=== PATIENT | female | born 1940 | race Caucasian/White ===

== ENCOUNTER → 2021-12-07 11:38 | Outpatient (BNVA) | payer MEDICARE, SELFPAY | PROVIDERS: PCP Internal Medicine; Referring Provider Internal Medicine; Visit Provider Psychiatry & Neurology Neurology | DX: G25.0 Essential tremor (principal); G25.81 Restless legs syndrome; H53.9 Unspecified visual disturbance; R42 Dizziness and giddiness | CPT/HCPCS: 99212 ==

== ENCOUNTER → 2022-06-03 14:16 | Outpatient (BNVA) | payer MEDICARE, SELFPAY | PROVIDERS: PCP Internal Medicine; Visit Provider Psychiatry & Neurology Neurology | DX: G25.0 Essential tremor (principal); R42 Dizziness and giddiness; H53.9 Unspecified visual disturbance; G25.81 Restless legs syndrome | CPT/HCPCS: 99212 ==

== ENCOUNTER → 2023-01-28 12:31 | Outpatient (BNVA) | payer MEDICARE, SELFPAY | PROVIDERS: PCP Internal Medicine; Visit Provider Psychiatry & Neurology Neurology | DX: G25.0 Essential tremor (principal); G25.81 Restless legs syndrome; R42 Dizziness and giddiness; H53.9 Unspecified visual disturbance | CPT/HCPCS: 99212 ==

== ENCOUNTER 2023-07-29 12:30 | Outpatient (AMB) | payer MEDICARE, SELFPAY ==
--- NOTE | 2023-07-29 12:30 | A.OFFVIS_ITS ---
Intake Vital Signs 07/29/23 12:33 Height 5 ft 4 in Weight 140 lb BMI 24.0 BP 142/80 H Blood Pressure Location Lt brachial Position Sitting Pulse 78 Pulse Source Pulse Oximeter Pulse Oximetry (%) 98 Oxygen Delivery Method Room Air Intake Visit Reasons: 6m follow up Tremor-lvm Intake Note: Fup tremor and rls, pt states diet change is helping and tremors have gone up more. Pt tried pt and said vertigo has improved. Allergies raloxifene [From Evista] Allergy (Intermediate, Verified 07/29/23 12:36) Joint Pain alendronate sodium [From Fosamax] Allergy (Unknown, Verified 07/29/23 12:36) Rash weed pollen Allergy (Unknown, Verified 07/29/23 12:36) Unknown primidone Adverse Reaction (Intermediate, Verified 07/29/23 12:36) Nausea propranolol Adverse Reaction (Intermediate, Verified 07/29/23 12:36) Difficulty Breathing gabapentin Adverse Reaction (Unknown, Verified 07/29/23 12:36) Dizziness topiramate [From Topamax] Adverse Reaction (Unknown, Verified 07/29/23 12:36) Fatigued Medication List - Last Reconciled 07/29/23 by Salina Fritz MD albuterol sulfate 90 mcg/actuation 0 mcg inhalation atorvastatin 10 mg PO DAILY diclofenac sodium 1% (Arthritis Pain (diclofenac)) 2 grams topical QID estradiol 0.01%(0.1mg/gram) grams vaginal fluticasone propionate 220 mcg/actuation (Flovent HFA) 2 puffs inhalation BID hyaluronate sod, cross-linked (Gel-One) intra-articular levothyroxine 75 mcg PO DAILY meclizine 12.5 mg PO TID PRN montelukast 10 mg PO DAILY pregabalin (Lyrica) 25 mg PO TID 90 days HPI HPI Comments History of Present Illness Details 82y/o female comes for follow up. she re ports right sacroiliac pain , sciatica.Sciatica is better but she still has the back pain. she [facility].she also sees Dr. Sargent at [facility] who suggested steroids. she had breast scar tissue tear which was very painful initially but better now. she is doing PT now and it helps. she feels like she is moving less due to pain. Tremors fluctuates and she feels the medication wears off 3 hrs after the meds.Lyrica qid makes her vision blurry so she takes 3 times a day 1-2 oz of wine at dinner helps. 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 she is on magnesium and riboflavin Her leg cramps are better since she increased her spinach and sardines in her diet. Vertigo - mild increase . [facility] Medical History Restless legs syndrome Visual aura Vertigo Benign essential tremor Family History Brother Carotid artery disease Social History Alcohol intake: current Alcohol type: wine Patient Tobacco Use Status: Never used Tobacco Physical Exam Vital Signs: Last Vital Signs Pulse 78 07/29/23 12:33 BP 142/80 H 07/29/23 12:33 Pulse Ox 98 07/29/23 12:33 Oxygen Delivery Method Room Air 07/29/23 12:33 BMI result Body Mass Index 24.0 Const General: cooperative, healthy appearing, comfortable and no acute distress Orientation/consciousness: patient oriented x3 HEENT Head: Yes normal to inspection Eyes Pupils: Equal, round and reactive pupils present Back/Spine/Pelvis Other: tightness in right sacroiliac region Neuro Other: tongue tremors Mild postural tremors L>R gait - normal neck - good range of motion General: patient oriented x3 Cranial nerves: Yes CN's II-XII intact bilaterally, Yes Facial sensation intact/muscles of mastication intact, Yes Equal, round and reactive pupils present and Yes Normal facial strength present Cognition (Neuro): normal cognition Assessment & Plan Assessment & Plan (1) Benign essential tremor: Code(s): G25.0 - Essential tremor (2) Vertigo: Code(s): R42 - Dizziness and giddiness (3) Visual aura: Code(s): H53.9 - Unspecified visual disturbance (4) Restless legs syndrome: Code(s): G25.81 - Restless legs syndrome Plan Continue lyrica 25mg bid,tid as needed Neck exercises Back pain - continue PT Orders: Orders PT Evaluation and Treatment Today R42 - Dizziness and giddiness Coding Level of Care Code Est Pt Level 4 (91898) Diagnoses Benign essential tremor G25.0 Vertigo R42 Visual aura H53.9 Restless legs syndrome G25.81
[2023-07-29 12:33] VITALS: BP 142/80; PULSE 78; O2SAT 98; BMI 24.0
== END 2023-07-29 13:14 | disposition home or self-care (01) ==
PROVIDERS: Visit Provider Psychiatry & Neurology Neurology
DX: G25.0 Essential tremor (principal); R42 Dizziness and giddiness; H53.9 Unspecified visual disturbance; G25.81 Restless legs syndrome
CPT/HCPCS: 99214

== ENCOUNTER → 2023-07-29 12:30 | Outpatient (BNVA) | payer MEDICARE, SELFPAY | PROVIDERS: Visit Provider Psychiatry & Neurology Neurology | DX: G25.0 Essential tremor (principal); R42 Dizziness and giddiness; H53.9 Unspecified visual disturbance; G25.81 Restless legs syndrome; Z79.899 Other long term (current) drug therapy | CPT/HCPCS: 99212 ==

== ENCOUNTER 2024-02-02 12:25 | Outpatient (AMB) | payer MEDICARE, SELFPAY ==
[2024-02-02 12:36] VITALS: BP 166/80; PULSE 76; RESP 16; O2SAT 97
--- NOTE | 2024-02-02 12:36 | MHC.OFFVIS ---
Intake Vital Signs 02/02/24 12:36 Height 54 ft Weight 141 lb 2 oz BMI 0.2 BP 166/80 H Blood Pressure Location Rt brachial Position Sitting Respiration 16 Pulse 76 Pulse Source Pulse Oximeter Pulse Oximetry (%) 97 Oxygen Delivery Method Room Air Intake Visit Reasons: 6m follow up Tremor-LVM Intake Note: Pt presents to the office for a 6 month follow up for tremors. [employer] P[employer] Supervisor Required: No Allergies raloxifene [From Evista] Allergy (Intermediate, Verified 02/02/24 12:36) Joint Pain alendronate sodium [From Fosamax] Allergy (Unknown, Verified 02/02/24 12:36) Rash weed pollen Allergy (Unknown, Verified 02/02/24 12:36) Unknown primidone Adverse Reaction (Intermediate, Verified 02/02/24 12:36) Nausea propranolol Adverse Reaction (Intermediate, Verified 02/02/24 12:36) Difficulty Breathing gabapentin Adverse Reaction (Unknown, Verified 02/02/24 12:36) Dizziness topiramate [From Topamax] Adverse Reaction (Unknown, Verified 02/02/24 12:36) Fatigued Medication List - Last Reconciled 02/02/24 by Salina Fritz MD albuterol sulfate 90 mcg/actuation 0 mcg inhalation atorvastatin 10 mg PO DAILY diclofenac sodium 1% (Arthritis Pain (diclofenac)) 2 grams topical QID estradiol 0.01%(0.1mg/gram) grams vaginal estradiol 0.01%(0.1mg/gram) 1 g vaginal 2XW fluticasone propionate 220 mcg/actuation (Flovent HFA) 2 puffs inhalation BID hyaluronate sod, cross-linked (Gel-One) intra-articular levothyroxine 75 mcg PO DAILY meclizine 12.5 mg PO TID PRN montelukast 10 mg PO DAILY pregabalin (Lyrica) 25 mg PO TID 90 days HPI HPI Comments History of Present Illness Details 83y/o female comes for follow up. she is under a lot of stress because of her husbands retinal detachment. Sciatica is better but she still has the back pain. she was [facility] at [facility].she also sees Dr. Sargent at [facility] who suggested steroids. she had breast scar tissue tear which was very painful initially but better now. Tremors fluctuates and she feels the medication wears off 3 hrs after the meds .Lyrica qid makes her vision blurry so she takes 3 times a day 1-2 oz of wine at dinner helps. 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 she is on magnesium and riboflavin Her leg cramps are better since she increased her spinach and sardines in her diet. Vertigo - mild increase . [facility] Medical History Restless legs syndrome Visual aura Vertigo Benign essential tremor Family History Brother Carotid artery disease Social History Alcohol intake: current Alcohol type: wine Patient Tobacco Use Status: Never used Tobacco Physical Exam Vital Signs: Last Vital Signs Pulse 76 02/02/24 12:36 Resp 16 02/02/24 12:36 BP 166/80 H 02/02/24 12:36 Pulse Ox 97 02/02/24 12:36 Oxygen Delivery Method Room Air 02/02/24 12:36 BMI result Body Mass Index 0.2 Const General: cooperative, healthy appearing, comfortable and no acute distress Orientation/consciousness: patient oriented x3 HEENT Head: Yes normal to inspection Eyes Pupils: Equal, round and reactive pupils present Back/Spine/Pelvis Other: tightness in right sacroiliac region Neuro Other: tongue tremors Mild postural tremors L>R gait - normal neck - good range of motion General: patient oriented x3 Cranial nerves: Yes CN's II-XII intact bilaterally, Yes Facial sensation intact/muscles of mastication intact, Yes Equal, round and reactive pupils present and Yes Normal facial strength present Cognition (Neuro): normal cognition Assessment & Plan Assessment & Plan (1) Benign essential tremor: Code(s): G25.0 - Essential tremor (2) Vertigo: Code(s): R42 - Dizziness and giddiness (3) Visual aura: Code(s): H53.9 - Unspecified visual disturbance (4) Restless legs syndrome: Code(s): G25.81 - Restless legs syndrome Plan Continue lyrica 25mg bid,tid as needed Neck exercises Back pain - continue PT Orders: Orders PT Evaluation and Treatment Today M54.30 - Sciatica, unspecified side, R26.9 - Unspecified abnormalities of gait and mobility Medications: Refilled pregabalin (Lyrica) 25 mg PO TID 90 days 270 caps 3RF Coding Level of Care Code Est Pt Level 4 (02063) Diagnoses Benign essential tremor G25.0 Vertigo R42 Visual aura H53.9 Restless legs syndrome G25.81
== END 2024-02-02 13:23 | disposition home or self-care (01) ==
PROVIDERS: PCP Internal Medicine; Visit Provider Psychiatry & Neurology Neurology
DX: G25.0 Essential tremor (principal); R42 Dizziness and giddiness; H53.9 Unspecified visual disturbance; G25.81 Restless legs syndrome
CPT/HCPCS: 99214

== ENCOUNTER → 2024-02-02 12:25 | Outpatient (BNVA) | payer MEDICARE, SELFPAY | PROVIDERS: PCP Internal Medicine; Visit Provider Psychiatry & Neurology Neurology | DX: G25.0 Essential tremor (principal); H53.9 Unspecified visual disturbance; R42 Dizziness and giddiness; G25.81 Restless legs syndrome | CPT/HCPCS: 99212 ==

== ENCOUNTER 2024-08-03 13:03 | Outpatient (AMB) | payer MEDICARE, SELFPAY ==
--- NOTE | 2024-08-03 13:04 | MHC.OFFVIS ---
Vital Signs 08/03/24 13:05 Height 5 ft 4 in BP 138/70 Blood Pressure Location Rt brachial Position Sitting Pulse 85 Pulse Source Pulse Oximeter Pulse Oximetry (%) 99 Oxygen Delivery Method Room Air Intake Visit Reasons: 6 month F/U Intake Note: Patient presents for a 6 mon follow up ( Tremors ). Nurse Practitioner Physicians Assistant Required: No Accompanied by: Self / Same As Patient Allergies raloxifene [From Evista] Allergy (Intermediate, Verified 08/03/24 13:08) Joint Pain alendronate sodium [From Fosamax] Allergy (Unknown, Verified 08/03/24 13:08) Rash weed pollen Allergy (Unknown, Verified 08/03/24 13:08) Unknown primidone Adverse Reaction (Intermediate, Verified 08/03/24 13:08) Nausea propranolol Adverse Reaction (Intermediate, Verified 08/03/24 13:08) Difficulty Breathing gabapentin Adverse Reaction (Unknown, Verified 08/03/24 13:08) Dizziness topiramate [From Topamax] Adverse Reaction (Unknown, Verified 08/03/24 13:08) Fatigued Medication List - Last Reconciled 08/03/24 by Salina Fritz MD albuterol sulfate 90 mcg/actuation 0 mcg inhalation atorvastatin 10 mg PO DAILY diclofenac sodium 1% (Arthritis Pain (diclofenac)) 2 grams topical QID estradiol 0.01%(0.1mg/gram) grams vaginal estradiol 0.01%(0.1mg/gram) 1 g vaginal 2XW fluticasone propionate 220 mcg/actuation (Flovent HFA) 2 puffs inhalation BID hyaluronate sod, cross-linked (Gel-One) intra-articular levothyroxine 75 mcg PO DAILY meclizine 12.5 mg PO TID PRN montelukast 10 mg PO DAILY pregabalin (Lyrica) 25 mg PO TID 90 days HPI Comments Details: 83y/o female comes for follow up. Sciatica is better but she still has the back pain. she was seen at [facility].she also sees Dr. Sargent at [facility] who suggested steroids.she declined cortisone shots. Tremors fluctuates, worse when stressed and she feels the medication wears off 3 hrs after the meds .Lyrica qid makes her vision blurry so she takes 3 times a day she has trouble holding her sewing needles. 1-2 oz of wine at dinner helps. 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 she has frequent visual auras. she is on magnesium and riboflavin Her leg cramps are better since she increased her spinach and sardines in her diet. Vertigo - mild increase , if cautious she can control it. [facility] Medical History Sciatica Gait disorder Restless legs syndrome Visual aura Vertigo Benign essential tremor Family History Brother Carotid artery disease Social History Alcohol intake: current Alcohol type: wine Patient Tobacco Use Status: Never used Tobacco Physical Exam Vital Signs: Last Vital Signs Pulse 85 08/03/24 13:05 BP 138/70 08/03/24 13:05 Pulse Ox 99 08/03/24 13:05 Oxygen Delivery Method Room Air 08/03/24 13:05 Const General: cooperative, healthy appearing, comfortable and no acute distress Orientation/consciousness: patient oriented x3 HEENT Head: Yes normal to inspection Eyes Pupils: Equal, round and reactive pupils present Back/Spine/Pelvis Other: tightness in right sacroiliac region Neuro Other: tongue tremors Mild postural tremors L>R gait - normal neck - good range of motion General: patient oriented x3 Cranial nerves: Yes CN's II-XII intact bilaterally, Yes Facial sensation intact/muscles of mastication intact, Yes Equal, round and reactive pupils present and Yes Normal facial strength present Cognition (Neuro): normal cognition Assessment & Plan Assessment & Plan (1) Benign essential tremor: Code(s): G25.0 - Essential tremor Category: Medical (2) Vertigo: Code(s): R42 - Dizziness and giddiness Category: Medical (3) Visual aura: Code(s): H53.9 - Unspecified visual disturbance Category: Medical (4) Restless legs syndrome: Code(s): G25.81 - Restless legs syndrome Category: Medical Plan Continue lyrica 25mg bid,tid as needed Neck exercises Hand exercises Coding Level of Care Code Est Pt Level 4 (91033) Complex EM visit Add On G2211 Diagnoses Benign essential tremor G25.0 Vertigo R42 Visual aura H53.9 Restless legs syndrome G25.81
[2024-08-03 13:05] VITALS: BP 138/70; PULSE 85; O2SAT 99
== END 2024-08-03 13:40 | disposition home or self-care (01) ==
PROVIDERS: PCP Internal Medicine; Visit Provider Psychiatry & Neurology Neurology
DX: G25.0 Essential tremor (principal); R42 Dizziness and giddiness; H53.9 Unspecified visual disturbance; G25.81 Restless legs syndrome
CPT/HCPCS: 99214; G2211

== ENCOUNTER → 2024-08-03 13:03 | Outpatient (BNVA) | payer MEDICARE, SELFPAY | PROVIDERS: PCP Internal Medicine; Visit Provider Psychiatry & Neurology Neurology | DX: G25.0 Essential tremor (principal); G25.81 Restless legs syndrome; H53.9 Unspecified visual disturbance; R42 Dizziness and giddiness | CPT/HCPCS: 99212 ==

== ENCOUNTER 2025-03-03 13:09 | Outpatient (AMB) | payer MEDICARE, SELFPAY ==
--- NOTE | 2025-03-03 13:28 | A.OFFVIS_ITS ---
Vital Signs 03/03/25 13:29 Height 5 ft 4 in BP 114/72 Blood Pressure Location Rt brachial Position Sitting Intake Visit Reasons: 6 month F/U-Conf Intake Note: Patient following up for vertigo. Allergies raloxifene [From Evista] Allergy (Intermediate, Verified 03/03/25 13:29) Joint Pain alendronate sodium [From Fosamax] Allergy (Unknown, Verified 03/03/25 13:29) Rash weed pollen Allergy (Unknown, Verified 03/03/25 13:29) Unknown primidone Adverse Reaction (Intermediate, Verified 03/03/25 13:29) Nausea propranolol Adverse Reaction (Intermediate, Verified 03/03/25 13:29) Difficulty Breathing gabapentin Adverse Reaction (Unknown, Verified 03/03/25 13:29) Dizziness topiramate [From Topamax] Adverse Reaction (Unknown, Verified 03/03/25 13:29) Fatigued Medication List - Last Reconciled 03/03/25 by Salina Fritz MD albuterol sulfate 90 mcg/actuation 0 mcg inhalation atorvastatin 10 mg PO DAILY diclofenac sodium 1% (Arthritis Pain (diclofenac)) 2 grams topical QID estradiol 0.01%(0.1mg/gram) grams vaginal estradiol 0.01%(0.1mg/gram) 1 g vaginal 2XW fluticasone propionate 220 mcg/actuation (Flovent HFA) 2 puffs inhalation BID hyaluronate sod, cross-linked (Gel-One) intra-articular levothyroxine 75 mcg PO DAILY meclizine 12.5 mg PO TID PRN montelukast 10 mg PO DAILY pregabalin 1 capsule tid; HPI Comments Details: 84y/o female comes for follow up. she has allergies and she has vertigo that is severe for past 24 hrs.No vomitting Sciatica is better but she still has the back pain. she was seen at [facility].she yusuf sback and hip pain- uses CBD cream and is managing. Tremors fluctuates, worse when stressed and she feels the medication wears off 3 hrs after the meds .Lyrica qid makes her vision blurry so she takes 3 times a day she has trouble holding her sewing needles. 1-2 oz of wine at dinner helps. 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 she has frequent visual auras. she is on magnesium and riboflavin Her leg cramps are better since she increased her spinach and sardines in her diet. Vertigo - mild increase , if cautious she can control it. [facility] Medical History Sciatica Gait disorder Restless legs syndrome Visual aura Vertigo Benign essential tremor Family History Brother Carotid artery disease Social History Alcohol intake: current Alcohol type: wine Patient Tobacco Use Status: Never used Tobacco Physical Exam Vital Signs: Last Vital Signs BP 114/72 03/03/25 13:29 Const General: cooperative, healthy appearing, comfortable and no acute distress Orientation/consciousness: patient oriented x3 HEENT Head: Yes normal to inspection Eyes Pupils: Equal, round and reactive pupils present Back/Spine/Pelvis Other: tightness in right sacroiliac region Neuro Other: tongue tremors Mild postural tremors L>R gait - normal neck - good range of motion General: patient oriented x3 Cranial nerves: Yes CN's II-XII intact bilaterally, Yes Facial sensation intact/muscles of mastication intact, Yes Equal, round and reactive pupils present and Yes Normal facial strength present Cognition (Neuro): normal cognition Assessment & Plan Assessment & Plan (1) Benign essential tremor: Code(s): G25.0 - Essential tremor Category: Medical (2) Vertigo: Code(s): R42 - Dizziness and giddiness Category: Medical (3) Visual aura: Code(s): H53.9 - Unspecified visual disturbance Category: Medical (4) Restless legs syndrome: Code(s): G25.81 - Restless legs syndrome Category: Medical Plan Continue lyrica 25mg bid,tid as needed Neck exercises Hand exercises vestibular therapy Orders: Orders PT Evaluation and Treatment Today R42 - Dizziness and giddiness Medications: Refilled pregabalin 1 capsule tid; 270 caps 1RF Coding Level of Care Code Est Pt Level 4 (20572) Complex EM visit Add On G2211 Diagnoses Benign essential tremor G25.0 Vertigo R42 Visual aura H53.9 Restless legs syndrome G25.81
[2025-03-03 13:29] VITALS: BP 114/72
--- OUTSIDE RECORDS SUMMARY | 2025-03-03 14:16 | XMS_ITS | Data Portability ---
Author Organization [facility], [facility] Address [address] [place] [address] Assessment No assessment recorded. Plan of Treatment Reminders Order Date Submit Date Provider Last Modified By Organization Details Last Modified Time Details Appointments None record ed. Lab None record ed. Referral None record ed. Procedures None record ed. Surgeries None record ed. Imaging None record ed. Medication Orders None record ed. Patient TargetsNo targets recorded. Patient InstructionsNo instructions recorded. Reason for Referral None Reported. Results Created Date Observation Date Name Description Value Unit Range Abnormal Flag Note LastModifiedBy Organization Detail LastModifiedTime 06/26/20 24 07/24/2020 imagi ng/di agnos tic resul t No observ ation record ed. [email or web address] Not Available 05/29 01:58:02 06/26/20 24 07/04/2020 imagi ng/di agnos tic resul t No observ ation record ed. [email or web address] Not Available 05/29 01:58:03 Result Notes None recorded. Problems Name Problem SNOMED Code Status Onset Date Resolution Date Notes Provider Name and Address Organization Details Recorded Time No complaints 600387451 Active Status : 'A'; Not Available [facility] 4 09:27:38 Problem Notes None recorded. Procedures Surgical History Date Name Laterality Status Provider Name and Address Organization Details Recorded Time 5 Gel-One Knee Injection completed Vitor Fox PA-C [address], [place], [address], [place] [facility] 12/28/2024 14:40:23 4 Gel-One Knee Injection completed Vitor Fox PA-C [address], [place], [address], [place] [facility] 05/25/2024 14:05:55 Imaging Results Imaging Date Name Status LastModified by Organiz ation Details LastModified Time 07/24/2020 imaging/diag nostic result completed Information not available 06/26/2024 01:58:02 07/04/2020 imaging/diag nostic result completed Information not available 06/26/2024 01:58:03 Procedure Notes None recorded. Medical Equipment None Reported. Allergies Allergen ID Allergen Name Allergen Category Reaction Reaction Severity Criticality Documentation Date Start Date Code Code System Note Provider Name and Address Organization Details Recorded Time 17085 Topamax medicatio n Not available Not available Not available 12/29/20232019 59342 3 RxNorm Not Available [facility] 4 12:08:33 30680 gabapenti n medicatio n Not available Not available Not available 12/29/20232019 24518 RxNorm Not Available [facility] 4 12:08:33 Medications Name Sig Start Date Stop Date Status Note LastModified by Organization Details LastModified Time atorvastatin 10 mg tablet TAKE 1 TABLET DAILY active Not Available Not Available No t Available azithromycin 250 mg tablet TAKE 2 TABLETS BY MOUTH TODAY, THEN TAKE 1 TABLET DAILY FOR 4 DAYS DIRECTED active Not Available Not Available No t Available ofloxacin 0.3 % eye drops PLACE 2 DROPS INTO BOTH EYES 4 TIMES DAILY FOR 7 DAYS active Not Available Not Available N ot Available levothyroxin e 75 mcg tablet TAKE 1 TABLET ONCE DAILY active Not Available Not Available No t Available doxycycline monohydrate 100 mg capsule TAKE 1 CAPSULE BY MOUTH TWICE A DAY FOR 7 DAYS active Not Available Not Available No t Available montelukast 10 mg tablet TAKE 1 TABLET EVERY EVENING active Not Available Not Available No t Available fluticasone propionate 220 mcg/actuatio n HFA aerosol inhaler USE 2 INHALATIONS ORALLY IN THE MORNING AND 2 INHALATIONS IN THE EVENING (2 TIMES A DAY). active Not Available Not Available No t Available Ventolin HFA 90 mcg/actuatio n aerosol inhaler active Not Available Not Available Not Available pregabalin 25 mg capsule active Not Available Not Available Not Available magnesium oxide Magnesium Oxide 400MG Tablet 2023 active Statu s: 'Curr ent'; Not Available Not Available Not Available Vitals Date Recorded Body height Body mass index (BMI) Body weight Provider Name and Address Organization Details Last Updated DateTime 05/25/2024 162.56 cm 25.7 kg/m2 64240.86 g LULY LEE [facility] 05/25/2024 13:51:41 Date Recorded Body height Body mass index (BMI) Body weight Provider Name and Address Organization Details Last Updated DateTime 12/28/2024 162.56 cm 25.7 kg/m2 55148.86 g MORGAN SÁNCHEZ [facility] 12/28/2024 14:19:46 Social History None recorded. Functional Status None recorded. Mental Status None recorded. Family History Nothing Reported. Medical History No medical history recorded. Gynecological HistoryNo gynecological history recorded. Obstetrics History GPAL:G 0 P 0 0 0 0 Past Encounters Encounter ID Performer Location Encounter Start Date Encounter Closed Date Diagnosis/Indication Diagnosis SNOMED-CT Code Diagnosis ICD10 Code Diagnosis Note [id number] BONNIE Salmeron [address] [place] [address] 05/25/2024 13:47:33 05/25/2024 14:08:16 Osteoarthritis of right knee joint [id number] 51758 M17.11 [id number] BONNIE Salmeron [address] [place] [address] 12/28/2024 14:11:19 01/15/2025 07:49:04 Osteoarthritis of right knee joint [id number] 14831 M17.11 Health Concerns Section Related Observation LastModified by Organization Detai ls LastModified Time None Recorded Concern Status LastModified by Organization Details LastModified Time None Recorded Advance Directives Directive None Recorded Payers Encounter Date Sequence Insurance Name Policy Number Policy North Covered Member ID North Member ID Guarantor Name 05/25/2024 1 [place] Jyoti Newton [id number] Jyoti Newton 05/25/2024 2 [place] [id number] Jyoti Newton [id number] Jyoit Newton 12/28/2024 1 [place] Jyoti Newton [id number] Jyoti Newton 12/28/2024 2 [place] [id number] Jyoti Newton [id number] Jyoti Newton Notes Date Note Type Note Provider Name and Address Organization Details Recorded Time 05/25/2024 text/html I am seeing the patient today under the supervision of Dr. Parks who was available but who did not see the patient. Reason For VisitPatient is here today for Demi Gel One injection of the Right knee(s). Patient reports no adverse reaction from previous injections. Physical FindingsEvaluation of the knee reveal no evidence of infection, no significant joint effusion, no warmth, or erythema. The injection sites are benign. Calves are supple and nontender. 5/5 strength. Some discomfort with range of motion. Assessment? Osteoarthritis of knee -right knees PlanAfter meticulous sterile preparation, Right knees were injected with Demi gel one 3 mg. Post-injection precautions were reviewed. I recommend ice, restriction of activities and re-evaluation next week for follow up injection. Vitor Fox PA-C [address], [place], [address], [facility] 05/25/2024 14:06:30 12/28/2024 text/html I am seeing the patient today under the supervision of Dr. Parks who was available but who did not see the patient. Reason For VisitPatient is here today for Demi GEL One injection of the Right knee(s). Patient reports no adverse reaction from previous injections. Physical FindingsEvaluation of the knees reveal no evidence of infection, no significant joint effusion, no warmth, or erythema. The injection sites are benign. Calves are supple and nontender. 5/5 strength. Some discomfort with range of motion. Assessment? Osteoarthritis of knee -right knees PlanAfter meticulous sterile preparation, right knees were injected with Gel One injection. Post-injection precautions were reviewed. I recommend ice, restriction of activities and re-evaluation next week for follow up injection. Vitor Fox PA-C [address], [place], [address], [facility] 12/28/2024 14:40:56 OBGyn Episode No OBEpisode recorded.
== END 2025-03-03 13:49 | disposition home or self-care (01) ==
LOC: HO.HSMS 13:10
PROVIDERS: PCP Internal Medicine; Visit Provider Psychiatry & Neurology Neurology
DX: G25.0 Essential tremor (principal); R42 Dizziness and giddiness; H53.9 Unspecified visual disturbance; G25.81 Restless legs syndrome
CPT/HCPCS: 99214; G2211

== ENCOUNTER → 2025-03-03 13:09 | Outpatient (BNVA) | payer MEDICARE, SELFPAY | PROVIDERS: PCP Internal Medicine; Visit Provider Psychiatry & Neurology Neurology | DX: G25.0 Essential tremor (principal); R42 Dizziness and giddiness; H53.9 Unspecified visual disturbance; G25.81 Restless legs syndrome | CPT/HCPCS: 99212 ==

== ENCOUNTER 2025-09-07 13:04 | Outpatient (AMB) | payer MEDICARE, SELFPAY ==
--- NOTE | 2025-09-07 13:06 | MHC.OFFVIS ---
Vital Signs 09/07/25 13:07 Height 5 ft 4 in Weight 152 lb 4 oz BMI 26.1 BP 132/66 Blood Pressure Location Rt brachial Position Sitting Pulse 96 Pulse Source Pulse Oximeter Pulse Oximetry (%) 98 Oxygen Delivery Method Room Air Intake Visit Reasons: 6 month F/U (LVM) Intake Note: Follow up Benign essential tremor, vertigo and visual disturbances, RLS. Med refill - Pregabalin Correction Officer Required: No Accompanied by: Spouse Allergies raloxifene (From Evista) Allergy (Intermediate, Verified 09/07/25 13:06) Joint Pain alendronate sodium (From Fosamax) Allergy (Unknown, Verified 09/07/25 13:06) Rash weed pollen Allergy (Unknown, Verified 09/07/25 13:06) Unknown primidone Adverse Reaction (Intermediate, Verified 09/07/25 13:06) Nausea propranolol Adverse Reaction (Intermediate, Verified 09/07/25 13:06) Difficulty Breathing gabapentin Adverse Reaction (Unknown, Verified 09/07/25 13:06) Dizziness topiramate (From Topamax) Adverse Reaction (Unknown, Verified 09/07/25 13:06) Fatigued HPI Comments Details: 84y/o female comes for follow up.she had COVID - Aug 01 2025. she did well was treated with paxlovid.she still has fatigue.Her tremors and vertigo worsened. she also had an episode of syncope in April 2025-saw cardiology and is schedule for loop recorder/ Sciatica is better but she still has the back pain. she was [facility] at [facility].she has back and hip pain- uses CBD cream and is managing. Tremors fluctuates, worse when stressed and she feels the medication wears off 3 hrs after the meds .Lyrica qid makes her vision blurry so she takes 3 times a day she has trouble holding her sewing needles. 1-2 oz of wine at dinner helps. 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 she has frequent visual auras. she is on magnesium and riboflavin Her leg cramps are better since she increased her spinach and sardines in her diet. Vertigo - mild increase , if cautious she can control it. [facility] Medical History Sciatica Gait disorder Restless legs syndrome Visual aura Vertigo Benign essential tremor Family History Brother Carotid artery disease Social History Alcohol intake: current Alcohol type: wine Patient Tobacco Use Status: Never used Tobacco Physical Exam Vital Signs: Last Vital Signs Pulse 96 09/07/25 13:07 BP 132/66 09/07/25 13:07 Pulse Ox 98 09/07/25 13:07 Oxygen Delivery Method Room Air 09/07/25 13:07 BMI result Body Mass Index 26.1 Const General: cooperative, healthy appearing, comfortable and no acute distress Orientation/consciousness: patient oriented x3 HEENT Head: Yes normal to inspection Eyes Pupils: Equal, round and reactive pupils present Back/Spine/Pelvis Other: tightness in right sacroiliac region Neuro Other: tongue tremors Mild postural tremors L>R gait - normal neck - good range of motion General: patient oriented x3 Cranial nerves: Yes CN's II-XII intact bilaterally, Yes Facial sensation intact/muscles of mastication intact, Yes Equal, round and reactive pupils present and Yes Normal facial strength present Cognition (Neuro): normal cognition Assessment & Plan Assessment & Plan (1) Benign essential tremor: Code(s): G25.0 - Essential tremor Category: Medical (2) Vertigo: Code(s): R42 - Dizziness and giddiness Category: Medical (3) Visual aura: Code(s): H53.9 - Unspecified visual disturbance Category: Medical (4) Restless legs syndrome: Code(s): G25.81 - Restless legs syndrome Category: Medical Plan Continue lyrica 25mg bid,tid as needed Neck exercises Hand exercises vestibular therapy as needed f/u cardiology for syncope Medications: Refilled pregabalin 1 capsule tid; 270 caps 1RF Coding Level of Care Code Est Pt Level 4 (76934) Complex EM visit Add On G2211 Diagnoses Benign essential tremor G25.0 Vertigo R42 Visual aura H53.9 Restless legs syndrome G25.81
[2025-09-07 13:07] VITALS: BP 132/66; PULSE 96; O2SAT 98; BMI 26.1
--- OUTSIDE RECORDS SUMMARY | 2025-09-07 15:51 | XMS_ITS | Clinical Summary ---
Author Organization [facility] Address [address] [address] Phone Care Team Providers Care Utility Accounts Director Name Role Phone Yaya Olson DO Primary Care Provider Allergies Active Allergy Reactions Criticality Noted Date Comments Alendronic Acid Itching Medium 09/26/2017 Gabapentin Medium 09/26/2017 Other reaction(s): Dizzy Tiredness Primidone Medium 09/26/2017 Other reaction(s): Dizzy Nausea,Lethargy Raloxifene Hcl Medium 09/26/2017 Joint Pain Topiramate Medium 09/26/2017 Other reaction(s): Dizzy Tiredness Medications albuterol (VENTOLIN HFA) 90 mcg/actuation inhaler Inhale 90 mcg into the lungs. Active cpm-pseudoephed -acetaminophen (SINUTAB) 2-30-500 mg per tablet Take 1 capsule by mouth. Active multivitamin,tx -oyfq-Sk-LD-min (THERA-M PLUS) 27-0.4 mg Tab Take 1 tablet by mouth. Active TURMERIC ORAL Take 800 mg by mouth. Active TRIAMCINOLONE ACETONIDE INHL Inhale 2 Squirts into the lungs. Active fluoride, sodium, (PREVIDENT 5000 PLUS) 1.1 % Crea Place onto teeth. Active selenium 50 mcg Tab Take 50 mcg by mouth. Active psyllium (METAMUCIL) Powd Take by mouth. Activ e pimecrolimus (ELIDEL) 1 % cream Apply 30 g topically. Active atorvastatin (LIPITOR) 10 MG tablet Take 10 mg by mouth. Active azelaic acid (FINACEA) 15 % gel Apply 15 each topically. Active biotin 5 mg Cap Take 1 capsule by mouth. Active cetirizine (ZYRTEC) 10 mg Cap Take 1 tablet by mouth. Active cholecalciferol , vitamin D3, 1,000 unit capsule Take by mouth. Activ e diclofenac sodium (VOLTAREN) 1 % Gel Place onto the skin. Active fluticasone (FLOVENT HFA) 110 mcg/actuation inhaler Inhale 2 puffs into the lungs. Active leyla root (LEYLA, ZINGIBER OFFICINALIS,) 550 mg Cap Take 2 tablets by mouth. Active levothyroxine (SYNTHROID, LEVOTHROID) 75 MCG tablet Take 75 mcg by mouth. Active meclizine (ANTIVERT) 12.5 mg tablet Take 1 tablet by mouth. Active montelukast (SINGULAIR) 10 mg tablet Take 10 mg by mouth. Active omega-3 fatty acids-fish oil (ONE-PER-DAY OMEGA-3) 684-1,200 mg CpDR Take by mouth. Activ e polyethylene glycol (MIRALAX) 17 gram/dose powder Take by mouth. Activ e pregabalin (LYRICA) 25 MG capsule Take 25 mg by mouth. Active b complex vitamins tablet Take by mouth. Active conjugated estrogens (PREMARIN) vaginal cream Apply one gram vaginally daily 90 g 3 0 Active Active Problems Problem Noted Date Diagnosed Date History of left breast cancer 09/28/2018 Menopause syndrome 09/28/2018 Encounter for annual routine gynecological exami [facility] 09/28/2018 Family History Medical History Relation Comments No Known Problems Father Heart attack Maternal Grandfather Breast cancer Maternal Grandmother Uterine cancer Mother No Known Problems Paternal Grandfather Stroke Paternal Grandmother Relation Status Comments Father Maternal Grandfather Maternal Grandmother Mother Paternal Grandfather Paternal Grandmother Social History Tobacco Use Types Packs/Day Years Used Date Smoking Tobacco: Never Smokeless Tobacco: Never Alcohol Use Standard Drinks/Week Comments Yes 0 (1 standard drink = 0.6 oz pur e alcohol) Education Answer Date Recorded Are you interested in more education? Not on rios e 02/21/2023 Are you concerned about learning? Not on file 02/21/2023 No 02/21/2023 No 02/21/2023 Digital Access Answer Date Recorded No 03/22/2023 No 03/22/2023 No 03/22/2023 Reliable internet access at home? Not on file 03/22/2023 Device with a working camera? Not on file Comments No Sex and Gender Information Value Date Recorded Sex Assigned at Not on file Legal Sex Female 3:59 PM EDT Gender Identity Not on file Sexual Orientation Not on file Last Filed Vital Signs Vital Sign Reading Time Taken Comments Blood Pressure 124/82 12/23/2019 1:33 PM EST Pulse - - Temperature - - Respiratory Rate - - Oxygen Saturation - - Inhaled Oxygen Concentration - - Weight 68.5 kg (151 lb) 12/23/2019 1:33 PM EST Height 162.6 cm (5' 4 ) 12/23/2019 1:33 PM EST Body Mass Index 25.92 12/23/2019 1:33 PM EST Plan of Treatment Health Maintenance Due Date Last Done Comments Adult Td,Tdap Booster 1942 TSH LEVEL 1942 DEPRESSION SCREENING 1954 PNEUMOCOCCAL VACCINES (50+ years) (1 of 1 - PCV) 1992 ZOSTER VACCINES (1 of 2) 1992 OSTEOPOROSIS SCREENING INITI AL (ONE-TIME) 2007 RSV VACCINE (1 - 1-dose 75+ series) 2017 INFLUENZA VACCINE (#1) 2025 08/10/2020 COVID-19 VACCINE (3 - 2024-2 6 season) 2025 12/22/2020, 11/30/2020 HEPATITIS A VACCINES Aged Out No long er eligible based on patient's age to complete this topic HIB VACCINES Aged Out No longer eligi ble based on patient's age to complete this topic IPV VACCINES Aged Out No longer eligi ble based on patient's age to complete this topic MENINGOCOCCAL VACCINES (ACWY) Aged Out No longer eligible based on patient's age to complete this topic MENINGOCOCCAL VACCINES (B) Aged Out N o longer eligible based on patient's age to complete this topic Medical Devices Not on file Insurance [facility] MEDEX SUPPLEMENT MEDICARE PART A & B [facility] MEDEX SUPPLEMENT MEDICARE PART A & B [employer] MEDEX SUPPLEMENT MEDICARE PART A & B [employer] MEDEX SUPPLEMENT MEDICARE PART A & B [employer] MEDEX SUPPLEMENT MEDICARE PART A & B [employer] MEDEX SUPPLEMENT MEDICARE PART A & B [employer] MEDEX SUPPLEMENT MEDICARE PART A & B [employer] MEDEX SUPPLEMENT MEDICARE PART A & B [employer] MEDEX SUPPLEMENT MEDICARE PART A & B Care Teams Utility Accounts Director Relationship Specialty Start Date End Date Yaya Olson DO [address] [place] [phone] PCP - General Internal Medicine 08/14/18 Additional Source Comments The information contained in this document represents components of the legal health record. It is not the complete legal health record.[facility]
--- OUTSIDE RECORDS SUMMARY | 2025-09-07 15:51 | XMS_ITS | Data Portability ---
Author Organization [facility], [facility] Address [address] [place] [address] Assessment No assessment recorded. Plan of Treatment [...] Address Organization Details Recorded Time No complaints [id number] Active Status : 'A'; Not Available [facility] 4 09:27:38 Osteoarthr itis of right knee joint 7802981950434 00 Active 2024 Vitor Fox PA-C [address], [place], [address] , [facility] 5 13:09:30 Problem Notes None recorded. Procedures Surgical History Date Name Laterality Status Provider Name and Address Organization Details Recorded Time 5 Gel-One Knee Injection completed Vitor Fox PA-C [address], [place], [address], [facility] 07/26/2025 13:09:19 5 Gel-One Knee Injection completed Vitor Fox PA-C [address], [place], [address], [facility] 12/28/2024 14:40:23 4 Gel-One Knee Injection completed Vitor Fox PA-C [address], [place], [address], [facility] 05/25/2024 14:05:55 Imaging Results None recorded. Procedure Notes None recorded. Medical Equipment None Reported. Allergies Allergen ID Allergen Name Allergen Category Reaction Reaction Severity Criticality Documentation Date Start Date Code Code System Note Provider Name and Address Organization Details Recorded Time 32698 Topamax medicatio n Not available Not available Not available 12/29/20232019 43700 3 RxNorm Not Available [facility] 4 12:08:33 50975 gabapenti n medicatio n Not available Not available Not available 12/29/20232019 80678 RxNorm Not Available [facility] 4 12:08:33 Medications Name Sig Start Date [...] HFA aerosol inhaler USE 2 INHALATIONS ORALLY TWICE DAILY active Not Available Not Available Not Available Ventolin HFA 90 mcg/actuatio n aerosol [...] Updated DateTime 12/28/2024 162.56 cm 25.7 kg/m2 59714.86 g MORGAN LRDEN [facility] 12/28/2024 14:19:46 Date Recorded Body height Body mass index (BMI) Body weight Provider Name and Address Organization Details Last Updated DateTime 05/25/2024 162.56 cm 25.7 kg/m2 58262.86 g LULY ELE [facility] 05/25/2024 13:51:41 Social History None recorded. Functional Status None recorded. Mental Status None recorded. Family History Nothing Reported. Medical History No medical history recorded. Gynecological HistoryNo gynecological history recorded. Obstetrics History GPAL:G 0 P 0 0 0 0 Past Encounters Encounter ID Performer Location Encounter Start Date Encounter Closed Date Diagnosis/Indication Diagnosis SNOMED-CT Code Diagnosis ICD10 Code Diagnosis IMO Codes Diagnosis Note [id number] [place] [address] 05/25/2024 13:47:33 05/25/2024 14:08:16 Osteoarthritis of right knee joint [id number] 69223 M17.[id number] [place] [address] 12/28/2024 14:11:19 01/15/2025 07:49:04 Osteoarthritis of right knee joint 1690964634 54841 M17.11 [id number] BONNIE Salmeron [address] [place] [address] 07/26/2025 13:04:20 08/03/2025 11:46:23 Osteoarthritis of right knee joint 8822735281 56015 M17.11 [id number] Health Concerns Section Related Observation LastModified by Organization Detai ls LastModified Time None Recorded Concern Status LastModified by Organization Details LastModified Time None Recorded Advance Directives Directive None Recorded Payers Insurance Date Sequence Insurance Name Policy Number Policy North Covered Member ID North Member ID Guarantor Name 07/23/2025 1 [place] Jyoti Newton [id number] Jyoti Newton 08/03/2025 2 [place] [id number] Jyoti Newton [id number] Jyoti Newton Notes Date Note Type [...] strength. Some discomfort with range of motion. Assessment Osteoarthritis of knee -right knees PlanAfter meticulous sterile preparation, Right knees were injected with Demi gel one 3 mg. Post-injection precautions were reviewed. I recommend ice, restriction of activities and re-evaluation next week for follow up injection. Vitor Fox PA-C [address], [place], [address], [facility] 05/25/2024 14:06:30 12/28/2024 text/html I am seeing [...] strength. Some discomfort with range of motion. Assessment Osteoarthritis of knee -right knees PlanAfter meticulous sterile preparation, right knees were injected with Gel One injection. Post-injection precautions were reviewed. I recommend ice, restriction of activities and re-evaluation next week for follow up injection. Vitor Fox PA-C [address], [place], [address], [facility] 12/28/2024 14:40:56 07/26/2025 text/html I am seeing the patient today under the supervision of Dr. Parks who was available but who did not see the patient. Reason For VisitPatient is here today for Demi GelOne injection of Right knee(s). Patient reports no adverse reaction from previous injections. Physical FindingsEvaluation of the knees reveal no evidence of infection, no significant joint effusion, no warmth, or erythema. The injection sites are benign. Calves are supple and nontender. 5/5 strength. Some discomfort with range of motion. Assessment Osteoarthritis of knee -Right knees PlanAfter meticulous sterile preparation, right knees were injected with Demi GelOne injection . Post-injection precautions were reviewed. I recommend ice, restriction of activities and re-evaluation next week for follow up injection. Vitor Fox PA-C [address], [place], [address], [facility] 07/26/2025 13:10:00 OBGyn Episode No OBEpisode recorded.
== END 2025-09-07 13:48 | disposition home or self-care (01) ==
LOC: HO.HSMS 13:05
PROVIDERS: PCP Internal Medicine; Visit Provider Psychiatry & Neurology Neurology
DX: G25.0 Essential tremor (principal); R42 Dizziness and giddiness; H53.9 Unspecified visual disturbance; G25.81 Restless legs syndrome
CPT/HCPCS: 99214; G2211

== ENCOUNTER → 2025-09-07 13:04 | Outpatient (BNVA) | payer MEDICARE, SELFPAY | PROVIDERS: PCP Internal Medicine; Visit Provider Psychiatry & Neurology Neurology | DX: G25.0 Essential tremor (principal); R42 Dizziness and giddiness; G25.81 Restless legs syndrome; H53.9 Unspecified visual disturbance | CPT/HCPCS: 99212 ==